=== PATIENT | female | born 1995 | race American Indian/Alaskan Native ===

== ENCOUNTER 2020-09-05 03:21 | Observation (INO) | payer MEDICAID ==
--- NOTE | 2020-09-05 04:23 | XRay Report ---
CHEST 2 VIEWS INDICATION / CLINICAL INFORMATION: Difficulty in breathing. COMPARISON: None available. FINDINGS: SUPPORT DEVICES: None. HEART / MEDIASTINUM: No significant abnormality. LUNGS / PLEURA: Clear lungs. No significant pleural effusion. No pneumothorax. ADDITIONAL FINDINGS: No significant additional findings. IMPRESSION: 1. No acute abnormality of the chest. Signer Name: Srikanth Selby MD Signed: 09/05/2020 4:19 AM Workstation Name: [id number]
[2020-09-05] MEDS ORDERED: ALBUTEROL 2.5 MG/3 ML NEBU IH ONE ×4 (04:34→08:36)
[2020-09-05] MEDS ORDERED: predniSONE 20 MG TAB PO ONE (04:34)
[2020-09-05] MEDS ORDERED: IPRATROPIUM 0.02% NEBU 2.5 ML IH ONE ×2 (04:35)
[2020-09-05] MEDS ORDERED: MAGNESIUM SULFATE 2 GM/50 ML BAG IV ONE (08:36)
--- NOTE | 2020-09-05 08:55 | Emergency Department Report ---
ED General Adult HPI - General Chief complaint: Dyspnea/Respdistress Stated complaint: SOB Time Seen by Provider: 09/05/20 08:29 Source: patient Mode of arrival: Ambulatory Limitations: No Limitations - History of Present Illness Initial comments: 25-year-old female with past medical history of asthma presenting for evaluation of shortness of breath. According to the patient she developed a cough gradually over the past week and has had intermittent fever over the past day. She states that last evening she was at work when she began to feel sharp midsternal chest pains that did not radiate and were worse with deep breathing and began to feel short of breath. Prior to my evaluation this morning she stated that her symptoms were severe however they are modestly improved at this time after steroids and breathing treatments though states that she still feels some discomfort. Symptoms better with nebs, worse with exertion. - Related Data Previous Rx's Medication Instructions Recorded Last Taken Type Docusate Sodium [Colace] 100 mg PO BID PRN #60 capsule 11/05/19 Unknown Rx Ferrous Sulfate [Feosol 325 MG tab] 325 mg PO QDAY #60 tablet 11/05/19 Unknown Rx oxyCODONE /ACETAMINOPHEN [Percocet 1 tab PO Q4HR #30 tab 11/05/19 Unknown Rx 5/325] Allergies Allergy/AdvReac Type Severity Reaction Status Date / Time NSAIDS (Non-Steroidal Allergy Unknown Verified 11/04/19 07:05 Anti-Inflamma ED Review of Systems ROS: Stated complaint: SOB Other details as noted in HPI Comment: All other systems reviewed and negative Respiratory: see HPI ED Past Medical Hx - Past Medical History Previous Medical History?: Yes Hx Hypertension: No Hx Diabetes: No Hx Deep Vein Thrombosis: No Hx Renal Disease: No Hx Sickle Cell Disease: No Hx Seizures: No Hx Asthma: Yes (USED INHALER 1 YR AGO) Hx HIV: No - Surgical History Past Surgical History?: Yes - Social History Smoking Status: Never Smoker Substance Use Type: Alcohol - Medications Home Medications: Home Medications Medication Instructions Recorded Confirmed Last Taken Type Docusate Sodium [Colace] 100 mg PO BID PRN #60 capsule 11/05/19 Unknown Rx Ferrous Sulfate [Feosol 325 MG tab] 325 mg PO QDAY #60 tablet 11/05/19 Unknown Rx oxyCODONE /ACETAMINOPHEN [Percocet 1 tab PO Q4HR #30 tab 11/05/19 Unknown Rx 5/325] ED Physical Exam - General Limitations: No Limitations General appearance: alert, in no apparent distress - Head Head exam: Present: atraumatic, normocephalic - Eye Eye exam: Present: normal appearance - ENT ENT exam: Present: mucous membranes moist - Neck Neck exam: Present: normal inspection - Respiratory Respiratory exam: Present: wheezes (few). Absent: respiratory distress - Cardiovascular Cardiovascular Exam: Present: normal rhythm, tachycardia. Absent: systolic murmur, diastolic murmur, rubs, gallop - GI/Abdominal GI/Abdominal exam: Present: soft, normal bowel sounds - Extremities Exam Extremities exam: Present: normal inspection - Back Exam Back exam: Present: normal inspection - Neurological Exam Neurological exam: Present: alert, oriented X3 - Psychiatric Psychiatric exam: Present: normal affect, normal mood - Skin Skin exam: Present: warm, dry, intact, normal color. Absent: rash ED Course Vital Signs 09/05/20 09/05/20 09/05/20 03:52 04:45 09:55 Temperature 99.2 F Pulse Rate 112 H 118 H Pulse Rate [ 92 H Bilateral Throughout] Respiratory 18 24 Rate Respiratory 22 Rate [Bilateral Throughout] Blood Pressure 128/95 O2 Sat by Pulse 94 94 Oximetry 09/05/20 09/05/20 09:58 11:00 Temperature Pulse Rate 113 H Pulse Rate [ 111 H Bilateral Throughout] Respiratory 24 Rate Respiratory 26 H Rate [Bilateral Throughout] Blood Pressure O2 Sat by Pulse 93 Oximetry - Reevaluation(s) Reevaluation #1: 09/05/20 11:41 I ambulated the patient and she maintained O2 saturation of 93% however she did have increased work of breathing and became much more tachycardic to the 130s. CTA resulted as negative, patient satting 92% on room air with mild increased work of breathing. Will admit. ED Medical Decision Making - Lab Data Result diagrams: 09/05/20 09:00 09/05/20 09:00 - Radiology Data Radiology results: report reviewed No acute findings on two-view chest x-ray - Medical Decision Making 25-year-old female with past history of asthma presenting with complaints of shortness of breath and sharp chest pains worse with inspiration that began last evening. She does report a preceding cough for 1 week. States she had a mild fever last night. Prior to my evaluation she was given nebulizer treatment as well as oral steroids and states that she does feel little bit better but not back to normal. On my examination her heart rate is about 105, O2 93 to 94% on room air, it does not drop when I exert the patient and she does have some mild wheezing on exam. Differential diagnoses includes asthma, pneumonia, PE. Given that despite multiple nebulizer treatments the patient remains symptomatic and has an O2 saturation below 95% we will check labs including D-dimer to rule out pulmonary embolism. We will also give additional nebulizer treatment as well as IV magnesium. After multiple nebulizer treatments including continuous, steroids, magnesium the patient continues to have increased work of breathing. She does maintain her sats with ambulation at about 90 to 93% however does become visibly short of breath. I discussed with Dr. Clarke, internal medicine who will admit patient for observation. - Differential Diagnosis Asthma, pneumonia, PE Critical Care Time: Yes Critical care time in (mins) excluding proc time.: 35 (status asthmaticus) Critical care attestation.: If time is entered above; I have spent that time in minutes in the direct care of this critically ill patient, excluding procedure time. ED Disposition Clinical Impression: Pulmonary nodule Asthma exacerbation Qualifiers: Asthma severity: mild Asthma persistence: intermittent Qualified Code(s): J45.21 - Mild intermittent asthma with (acute) exacerbation Disposition: -09 OP ADMIT IP TO THIS HOSP Is pt being admited?: Yes Condition: Stable Referrals: PRIMARY CARE, [Primary Care Provider] - 3-5 Days Time of Disposition: 11:43
[2020-09-05 09:10] LABS: Hematocrit 35.6 % (30.3-42.9); Hemoglobin 12.2 gm/dl (10.1-14.3); Mean Corpuscular HGB Conc 34 % (30-34); Mean Corpuscular Volume 87 fl (79-97); Platelet Count 300 K/mm3 (140-440); Red Cell Distribution Width 16.3 % (13.2-15.2)
[2020-09-05 09:31] LABS: BUN/Creatinine Ratio 4; Blood Urea Nitrogen 3 mg/dL (7-17); Calcium 8.7 mg/dL (8.4-10.2); Hemolysis Index 24
[2020-09-05] MEDS ORDERED: POTASSIUM CHLORIDE ER 20 MEQ TAB PO ONE (09:57)
[2020-09-05 10:07] LABS: Total Cells Counted 100
[2020-09-05 10:08] LABS: Platelet Estimate Consistent w Auto; RBC Morphology Normal
--- NOTE | 2020-09-05 11:19 | Cat Scan Report ---
CTA CHEST WITH IV CONTRAST INDICATION: Acute onset chest pain with dyspnea. Hypoxia TECHNIQUE: Axial CT images were obtained through the chest after injection of 100 mL IV contrast. 3 plane MIP re constructions were produced. All CT scans at this location are performed using CT dose reduction for ALARA by means of automated exposure control. COMPARISON: None available. FINDINGS: PULMONARY ARTERIES: No pulmonary emboli. AORTA AND ARTERIES: No acute abnormality. MEDIASTINUM: No mass, lymphadenopathy or other significant abnormality. The heart is normal in size w ithout a pericardial effusion. The trachea and main bronchi are patent and normal in caliber. LUNGS: No acute airspace disease. There is a focal 3 mm nodule adjacent to the left major fissure. AD DITIONAL FINDINGS: There is soft tissue prominence within the anterior mediastinum that may represent residual thymus but is ultimately nonspecific.. Mild gastroesophageal reflux UPPER ABDOMEN: No acute findings. BONES: No significant osseous abnormality. IMPRESSION: 1. No CT evidence for pulmonary embolism. 2. No acute findings. 3. Focal 3 mm nodule within the left lower lobe adjacent to the left major fissure. See below INCIDENTAL PULMONARY NODULE RECOMMENDATIONS Solid Nodule size <6 mm -- Single or Multiple - Low Risk Patient: No routine follow-up - High Risk Patient: Optional CT at 12 months Note These recommendations do not apply to lung cancer screening, patients with immunosuppression, o r patients with known primary cancer. Note Newly detected indeterminate nodule in persons 35 years of age or older. Persons under the age of 35 should not receive follow-up unless there is a known primary cancer. Low Risk Patient -- minimal or absent history of smoking and of other known risk factors. High Risk Patient -- history of smoking or of other known risk factors. Nodule dimensions are average of long and short axes, rounded to the nearest millimeter. Based on 2017 Fleischner Society Guidelines found in Radiology 2017 284:228-243. https://doi.org/10.1 148/[email or web address] Signer Name: Jose Swan MD Signed: 09/05/2020 11:15 AM Workstation Name: [email or web address]
[2020-09-05] MEDS ORDERED: ONDANSETRON 4 MG/2 ML INJ IM ONE (11:21)
[2020-09-05] MEDS ORDERED: LACTATED RINGERS 1,000 ML IV ONE (11:24)
--- NOTE | 2020-09-05 11:39 | History and Physical Report ---
History of Present Illness Chief complaint: I cant breathe History of present illness: 25 YO Female with Obesity Hypoventilation Syndrome, Mild Intermittent Asthma presents to ED for evaluation. Patient reports "I cannot breathe". Patient states that she has experienced shortness of breath over the past 1 week with worsening symptoms over the past 1 day. Patient was transported to [facility] via private vehicle for further care and evaluation of the aforementioned symptoms. The patient was seen and evaluated in the emergency department. All lab and imaging studies reviewed. Patient is unable to speak in complete sentences due to shortness of breath and is using accessory muscles to breathe. Patient is unable to ambulate more than 10 feet without stopping due to shortness of breath. Patient was found to have a pulse oximetry of 88% on exertion. Patient exhibits audible wheezes. Patient found to have symptoms consistent with status asthmaticus. Patient placed in observation status and admitted to medical floor. Patient treated with IV steroid therapy as well as magnesium and nebulized bronchodilator therapy with mild improvement in symptoms. Patient uses head gestures to deny fever, chills, chest pain, palpitation, skin rash, recent ill contacts, or known exposure to COVID-19. No prior admission for review. All medication listed at time of admission has been reconciled. Past History Past Medical History: other (See HPI) Past Surgical History: Social history: single. denies: smoking, alcohol abuse, prescription drug abuse Family history: hypertension Medications and Allergies Allergies Allergy/AdvReac Type Severity Reaction Status Date / Time NSAIDS (Non-Steroidal Allergy Unknown Verified 11/04/19 07:05 Anti-Inflamma Home Medications Medication Instructions Recorded Confirmed Last Taken Type Docusate Sodium [Colace] 100 mg PO BID PRN #60 capsule 11/05/19 09/05/20 Unknown Rx Ferrous Sulfate [Feosol 325 MG tab] 325 mg PO QDAY #60 tablet 11/05/19 09/05/20 Unknown Rx oxyCODONE /ACETAMINOPHEN [Percocet 1 tab PO Q4HR #30 tab 11/05/19 09/05/20 Unknown Rx 5/325] Albuterol Sulfate [Albuterol 0.63% 0.63 mg IH Q4H PRN 09/05/20 09/05/20 Unknown History NEBS] Active Meds: Active Medications Lactated Ringer's (Lactated Ringers) 1,000 mls @ 999 mls/hr IV BOLUS ONE Stop: 09/05/20 12:24 Review of Systems Constitutional: no weight loss, no weight gain, no fever, no chills Ears, nose, mouth and throat: no ear pain, no tinnitis, no decreased hearing, no nasal congestion Breasts: no change in shape, no swelling, no mass Cardiovascular: no orthopnea, no palpitations, no edema Respiratory: cough, shortness of breath, wheezing, no excessive sputum, no snoring Gastrointestinal: no abdominal pain, no nausea, no vomiting, no diarrhea Genitourinary Female: no pelvic pain, no flank pain, no dysuria, no urinary frequency, no urgency Rectal: no pain, no incontinence, no bleeding Musculoskeletal: no neck stiffness, no neck pain, no shooting arm pain, no arm numbness/tingling, no low back pain, no redness of joints Integumentary: no rash, no pruritis, no redness, no sores, no jaundice, no boils Neurological: no head injury, no transient paralysis, no weakness, no numbness, no tingling Psychiatric: no anxiety, no memory loss, no insomnia, no change in libido Endocrine: no polyphagia, no polydipsia, no polyuria, no nocturia Hematologic/Lymphatic: no easy bruising, no easy bleeding, no lymphadenopathy Allergic/Immunologic: no urticaria, no persistent infections, no anaphylaxis, no angioedema Exam - Constitutional Vitals: Temp Pulse Resp BP Pulse Ox 99.2 F 113 H 24 128/95 93 09/05/20 03:52 09/05/20 11:00 09/05/20 11:00 09/05/20 03:52 09/05/20 11:00 General appearance: Present: mild distress, obese - EENT Eyes: Present: PERRL ENT: hearing intact, clear oral mucosa - Neck Neck: Present: supple, normal ROM - Respiratory Respiratory effort: normal, labored, accessory muscle use, stridor Respiratory: bilateral: diminished, wheezing - Cardiovascular Heart Sounds: Present: S1 & S2. Absent: rub, click - Extremities Extremities: pulses symmetrical, No edema Peripheral Pulses: within normal limits - Abdominal General gastrointestinal: Present: soft, non-tender, non-distended, normal bowel sounds Female genitourinary: Present: normal - Integumentary Integumentary: Present: clear, warm, dry - Musculoskeletal Musculoskeletal: gait normal, strength equal bilaterally - Psychiatric Psychiatric: appropriate mood/affect, intact judgment & insight - Neurologic Neurologic: CNII-XII intact, moves all extremities Results - Labs CBC & Chem 7: 09/05/20 09:00 09/05/20 09:00 Labs: Abnormal lab results 09/05/20 09/05/20 09/05/20 Range/Units 09:00 09:00 09:00 RDW 16.3 H (13.2-15.2) % Seg Neuts % (Manual) 94.0 H (40.0-70.0) % Lymphocytes % (Manual) 4.0 L (13.4-35.0) % Seg Neutrophils # Man 8.7 H (1.8-7.7) K/mm3 Lymphocytes # (Manual) 0.4 L (1.2-5.4) K/mm3 D-Dimer 353.41 H (0-234) ng/mlDDU Potassium 3.0 L (3.6-5.0) mmol/L BUN 3 L (7-17) mg/dL Glucose 135 H (65-100) mg/dL Assessment and Plan - Patient Problems (1) Asthma exacerbation Current Visit: Yes Status: Acute Qualifiers: Asthma severity: mild Asthma persistence: intermittent Qualified Code(s): J45.21 - Mild intermittent asthma with (acute) exacerbation Plan to address problem: IV steroid therapy, IV magnesium therapy, supplemental oxygen, pulse oximetry, pulmonary toilet, supportive care. Patient counseled regarding avoidance of asthma triggers. (2) Obesity hypoventilation syndrome Current Visit: Yes Status: Acute Plan to address problem: Balanced diet, increase physical activity discharge, chest x-ray, CT scan chest, supplemental oxygen, pulse oximetry, supportive care. (3) GERD (gastroesophageal reflux disease) Current Visit: Yes Status: Acute Qualifiers: Esophagitis presence: without esophagitis Qualified Code(s): K21.9 - Gas tro-esophageal reflux disease without esophagitis Plan to address problem: PPI therapy, supportive care. (4) Obesity Current Visit: Yes Status: Acute Qualifiers: Body mass index: BMI 40.0-44.9 Plan to address problem: Balanced diet, increase physical activity at discharge. Patient counseled regarding balanced diet, calorie counting, and increase physical activity discharge. Patient structured to have outpatient pulmonary follow-up for sleep study. 30 minutes additional time spent counseling patient regarding meal plan, as well as initiation of exercise regimen. Behavior change counseling. (5) Pulmonary nodule Current Visit: Yes Status: Acute Plan to address problem: Patient counseled regarding pulmonary nodule. Patient struck to have repeat CT scan of the chest within 12 months for reevaluation of 3 mm left lung nodule. (6) DVT prophylaxis Current Visit: Yes Status: Acute Plan to address problem: SCD to bilateral lower extremities while in bed, patient is ambulatory
[2020-09-05] MEDS ORDERED: ACETAMINOPHEN 325 MG TAB PO PRN ×2 (11:40→11:42)
[2020-09-05] MEDS ORDERED: ONDANSETRON 4 MG/2 ML INJ IV PRN ×2 (11:40→11:42)
[2020-09-05] MEDS ORDERED: ALBUTEROL 2.5 MG/3 ML NEBU IH PRN (11:40)
[2020-09-05] MEDS ORDERED: DOCUSATE SODIUM 100 MG CAP PO PRN (11:41)
[2020-09-05] MEDS ORDERED: methylPREDNISolone Sod Succinate 125 MG/2 ML INJ IV ONE (12:00)
[2020-09-05] MEDS: FAMOTIDINE 20 MG TAB PO SCH ×2 (12:40→21:27)
[2020-09-05] MEDS ORDERED: HYDROmorphone 1 MG/1 ML INJ IV ONE (15:22)
[2020-09-05] MEDS: methylPREDNISolone Sod Succinate 40 MG/1 ML INJ IV SCH (19:46)
[2020-09-06] MEDS ORDERED: traZODone 50 MG TAB PO PRN (00:08)
[2020-09-06] MEDS ORDERED: traZODone 50 MG TAB PO SCH (01:00)
[2020-09-06] MEDS: methylPREDNISolone Sod Succinate 40 MG/1 ML INJ IV SCH ×2 (05:12→13:15)
[2020-09-06 08:17] LABS: BUN/Creatinine Ratio 6; Blood Urea Nitrogen 5 mg/dL (7-17); Calcium 8.6 mg/dL (8.4-10.2); Hemolysis Index 0
[2020-09-06] MEDS ORDERED: FERROUS SULFATE 325 MG TAB PO SCH (10:00)
--- NOTE | 2020-09-06 10:04 | Discharge Summary ---
Providers - Providers Date of Admission: 09/05/20 11:42 Attending physician: PATY JOHNSON MD Primary care physician: [facility] Hospitalization Reason for admission: Asthma exacerbation Condition: Stable Hospital course: 25 YO Female with Obesity Hypoventilation Syndrome, Mild Intermittent Asthma presents to ED for evaluation. Patient reports "I cannot breathe". Patient states that she has experienced shortness of breath over the past 1 week with worsening symptoms over the past 1 day. Patient was transported to [facility] via private vehicle for further care and evaluation of the aforementioned symptoms. The patient was seen and evaluated in the emergency department. All lab and imaging studies reviewed. Patient is unable to speak in complete sentences due to shortness of breath and is using accessory muscles to breathe. Patient is unable to ambulate more than 10 feet without stopping due to shortness of breath. Patient was found to have a pulse oximetry of 88% on exertion. Patient exhibits audible wheezes. Patient found to have symptoms consistent with status asthmaticus. Patient placed in observation status and admitted to medical floor. Patient treated with IV steroid therapy as well as magnesium and nebulized bronchodilator therapy with mild improvement in symptoms. Patient uses head gestures to deny fever, chills, chest pain, palpitation, skin rash, recent ill contacts, or known exposure to COVID-19. No prior admission for review. All medication listed at time of admission has been reconciled. Patient this morning was noted off oxygen saturation 98% and with ambulation 96% on room air. Mild tachycardia likely secondary to deconditioning. She informs me that she has not been using her inhaler for few months now. She only uses nebulizer. I did go over management with her and the importance of having an inhaler with her at all times. She has had some allergic reaction to the pollen she recently moved while in the last 2 years to [place]. Otherwise she is clinically stable good air movement to the lungs on auscultation. We had extensive discussion about a pulmonary nodule found on the need to follow-up with calendar control clerk blood bank. Also weight loss counseling and preventive care planning for 15 minutes was done. No pulmonary embolism was noted. (1) Asthma exacerbation (2) Obesity hypoventilation syndrome (3) GERD (gastroesophageal reflux disease) (4) Obesity (5) Pulmonary nodule 6) elevated D-dimer Disposition: TO HOME OR SELFCARE Final Discharge Diagnosis (Prints w/discharge instructions): Asthma exacerbation Time spent for discharge: 35 minutes Core Measure Documentation - Palliative Care Palliative Care/ Comfort Measures: Not Applicable - Core Measures Any of the following diagnoses?: none Exam - Physical Exam Narrative exam: VITAL SIGNS: Reviewed. GENERAL: The patient appears normally developed, Vital signs as documented. HEAD: No signs of head trauma. EYES: Pupils are equal. Extraocular motions intact. EARS: Hearing grossly intact. MOUTH: Oropharynx is normal. NECK: No adenopathy, no JVD. CHEST: Chest with good air entry bilaterally with bibasilar wheeze at the bases breath sounds bilaterally. No rales, or rhonchi. CARDIAC: Regular rate and rhythm. S1 and S2, without murmurs, gallops, or ru bs. VASCULAR: No Edema. Peripheral pulses normal and equal in all extremities. ABDOMEN: Soft, non tender and non distended. No rebound or guarding, and no masses palpated. Bowel Sounds normal. MUSCULOSKELETAL: Good range of motion of all major joints. Extremities without clubbing, cyanosis or edema. NEUROLOGIC EXAM: Alert and oriented x 3 No focal sensory or strength deficits. Speech normal. Follows commands. Speaking in full sentences PSYCHIATRIC: Mood normal. SKIN: detail exam as documented in skin assessment - Constitutional Vitals: Temp Pulse Resp BP Pulse Ox 98.5 F 87 18 132/58 100 09/05/20 22:52 09/05/20 22:52 09/05/20 22:52 09/05/20 22:52 09/06/20 09:14 Plan Activity: advance as tolerated, fall precautions Diet: low fat Special Instructions: smoking cessation Follow up with: PRIMARY MD SERGIO [Primary Care Provider] - 3-5 Days FELIPE TOMAS MD [Staff Physician] - 7 Days Prescriptions: Famotidine [Pepcid] 20 mg PO BID #60 tablet Prednisone [predniSONE 10 mg (6-Day Pack, 21 Tabs)] 10 mg PO .TAPER #1 tab.ds.pk Albuterol Mdi (or & Nicu Only) [ProAir HFA Inhaler] 2 puff IH QID PRN #8.5 gram PRN Reason: Shortness Of Breath ALBUTEROL NEB's [Proventil 0.083% NEBS] 2.5 mg IH Q4H PRN #90 nebu PRN Reason: Shortness Of Breath
[2020-09-06] MEDS: FAMOTIDINE 20 MG TAB PO SCH (10:15)
[2020-09-06 15:05] VITALS: BP 142/84
== END 2020-09-06 15:01 | disposition home or self-care (01) ==
LOC: ED 03:21 → 3A 11:42
PROVIDERS: ADMIT Internal Medicine; ATTEND Internal Medicine
DX: J45.901 Unspecified asthma with (acute) exacerbation (principal); J45.21 Mild intermittent asthma with (acute) exacerbation; E66.2 Morbid (severe) obesity with alveolar hypoventilation; K21.9 Gastro-esophageal reflux disease without esophagitis; E66.9 Obesity, unspecified; R91.1 Solitary pulmonary nodule; R77.8 Other specified abnormalities of plasma proteins; Z98.891 History of uterine scar from previous surgery; Z68.41 Body mass index [BMI] 40.0-44.9, adult; Z79.899 Other long term (current) drug therapy; Z98.890 Other specified postprocedural states
CPT/HCPCS: 36415; 71046; 71275; 80048; 82962; 84703; 85025; 85379; 93005; 94640; 94644; 96365; 96375; 96376; 99291; G0378; J1170; J2920; J2930; J3475; J7120; J7512; Q9967; 85007

== ENCOUNTER 2020-12-10 12:01 | Emergency (ER) | payer OTHER, MEDICAID ==
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
[2020-12-10] MEDS ORDERED: NEOMY 3.5 MG/BACIT 400 UNITS/POLY B 5000 UNITS/GM OINT PACKET TP ONE (16:00)
[2020-12-10 16:10] VITALS: BP 113/96
== END 2020-12-10 16:10 | disposition home or self-care (01) ==
LOC: ED 12:01
DX: S16.1XXA Strain of muscle, fascia and tendon at neck level, initial encounter (principal); S80.02XA Contusion of left knee, initial encounter; J45.909 Unspecified asthma, uncomplicated; Z88.8 Allergy status to other drugs, medicaments and biological substances; Z79.899 Other long term (current) drug therapy; Z98.890 Other specified postprocedural states; V49.59XA Passenger injured in collision with other motor vehicles in traffic accident, initial encounter; Y92.410 Unspecified street and highway as the place of occurrence of the external cause; Y93.89 Activity, other specified; Y99.8 Other external cause status
CPT/HCPCS: 72040; 73562; 99283; A6250

== ENCOUNTER 2021-03-17 10:11 | Emergency (ER) | payer OTHER, MEDICAID ==
[2021-03-17] MEDS ORDERED: diphenhydrAMINE 50 MG/ML VIAL IV ONE (10:28)
[2021-03-17] MEDS ORDERED: METOCLOPRAMIDE 10 MG/2 ML INJ IV ONE (10:28)
[2021-03-17] MEDS ORDERED: SODIUM CHLORIDE 0.9% 1000 ML 1,000 ML IV ONE (10:28)
[2021-03-17] MEDS ORDERED: ACETAMINOPHEN 325 MG TAB PO ONE (10:28)
--- NOTE | 2021-03-17 10:35 | Emergency Department Report ---
ED General Adult HPI - General Chief complaint: Chest Pain Stated complaint: CHEST PAIN, HEADACHE Time Seen by Provider: 03/17/21 10:22 Source: patient Mode of arrival: Ambulatory Limitations: No Limitations - History of Present Illness Initial comments: Patient is a 25-year-old female presents emergency room with complaints of URI symptoms that began 2 days ago. She has associated fever, generalized body aches, nasal congestion, rhinorrhea, headache, nausea, vomiting, cough, chest tightness, shortness of breath, generalized body aches. she states she also has decreased smell. She states that last week her daughter was diagnosed with pneumonia. She states that her daughter did not get tested for COVID-19. She has not been vaccinated for COVID-19 or tested for COVID-19 since becoming sick. She denies any vision changes, neck stiffness, pleuritic pain, leg swelling, calf pain. Has medical history of asthma. Allergy to NSAIDs. Last menstrual cycle beginning of February 2021. She has not taken anything today for her symptoms. Severity scale (0 -10): 10 - Related Data Previous Rx's Medication Instructions Recorded Last Taken Type ALBUTEROL NEB's [Proventil 0.083% 2.5 mg IH Q4H PRN #90 nebu 09/06/20 Unknown Rx NEBS] Albuterol Mdi (or & Nicu Only) 2 puff IH QID PRN #8.5 gram 09/06/20 Unknown Rx [ProAir HFA Inhaler] Bacitracin Zinc/Polymyxin B 1 applicatio TP BID #30 gram 12/10/20 Unknown Rx [Double Antibiotic Ointment] HYDROcodone/APAP 5-325 [[place] 1 each PO Q6HR PRN #12 tablet 12/10/20 Unknown Rx 5/325] methOCARBAMOL [Robaxin TAB] 750 mg PO Q8H PRN #30 tablet 12/10/20 Unknown Rx Benzonatate [Tessalon Perles] 100 mg PO Q8HR PRN #12 capsule 03/17/21 Unknown Rx Butalb/Acetaminophen/Caffeine 1 cap PO Q8HR PRN #12 cap 03/17/21 Unknown Rx [Fioricet 50-300-40 mg CAP] Ondansetron [Zofran Odt] 4 mg PO Q8HR PRN #10 tab.rapdis 03/17/21 Unknown Rx guaiFENesin ER [Mucinex ER] 600 mg PO Q12H #12 tablet.er 03/17/21 Unknown Rx Allergies Allergy/AdvReac Type Severity Reaction Status Date / Time NSAIDS (Non-Steroidal Allergy Unknown Verified 11/04/19 07:05 Anti-Inflamma ED Review of Systems ROS: Stated complaint: CHEST PAIN, HEADACHE Other details as noted in HPI Comment: All other systems reviewed and negative ED Past Medical Hx - Past Medical History Hx Hypertension: No Hx Congestive Heart Failure: No Hx Diabetes: No Hx Deep Vein Thrombosis: No Hx Renal Disease: No Hx Sickle Cell Disease: No Hx Seizures: No Hx Asthma: Yes (USED INHALER 1 YR AGO) Hx COPD: No Hx HIV: No - Surgical History Additional Surgical History: x 2 - Social History Smoking Status: Never Smoker Substance Use Type: None - Medications Home Medications: Home Medications Medication Instructions Recorded Confirmed Last Taken Type ALBUTEROL NEB's [Proventil 0.083% 2.5 mg IH Q4H PRN #90 nebu 09/06/20 Unknown Rx NEBS] Albuterol Mdi (or & Nicu Only) 2 puff IH QID PRN #8.5 gram 09/06/20 Unknown Rx [ProAir HFA Inhaler] Bacitracin Zinc/Polymyxin B 1 applicatio TP BID #30 gram 12/10/20 Unknown Rx [Double Antibiotic Ointment] HYDROcodone/APAP 5-325 [[place] 1 each PO Q6HR PRN #12 tablet 12/10/20 Unknown Rx 5/325] methOCARBAMOL [Robaxin TAB] 750 mg PO Q8H PRN #30 tablet 12/10/20 Unknown Rx Benzonatate [Tessalon Perles] 100 mg PO Q8HR PRN #12 capsule 03/17/21 Unknown Rx Butalb/Acetaminophen/Caffeine 1 cap PO Q8HR PRN #12 cap 03/17/21 Unknown Rx [Fioricet 50-300-40 mg CAP] Ondansetron [Zofran Odt] 4 mg PO Q8HR PRN #10 tab.rapdis 03/17/21 Unknown Rx guaiFENesin ER [Mucinex ER] 600 mg PO Q12H #12 tablet.er 03/17/21 Unknown Rx ED Physical Exam - General Limitations: No Limitations General appearance: alert, in no apparent distress - Head Head exam: Present: atraumatic, normocephalic - Eye Eye exam: Present: normal appearance - ENT ENT exam: Present: normal orophraynx, mucous membranes moist, TM's normal bilaterally, normal external ear exam, other (clear rhinorrhea bilaterally ) - Neck Neck exam: Present: full ROM. Absent: tenderness, meningismus - Respiratory Respiratory exam: Present: normal lung sounds bilaterally. Absent: respiratory distress, wheezes, rales, rhonchi, stridor, chest wall tenderness, accessory muscle use, decreased breath sounds, prolonged expiratory - Cardiovascular Cardiovascular Exam: Present: regular rate, normal rhythm, normal heart sounds. Absent: systolic murmur, diastolic murmur, rubs, gallop - Neurological Exam Neurological exam: Present: alert, oriented X3, CN II-XII intact, normal gait. Absent: motor sensory deficit - Psychiatric Psychiatric exam: Present: normal affect, normal mood - Skin Skin exam: Present: warm, dry, intact ED Course Vital Signs 03/17/21 03/17/21 10:18 15:40 Temperature 100.7 F H 96 F L Pulse Rate 97 H 82 Respiratory 16 18 Rate Blood Pressure 128/67 132/84 [Left] O2 Sat by Pulse 98 Oximetry ED Medical Decision Making - Lab Data Result diagrams: 03/17/21 10:57 03/17/21 10:28 Lab Results 03/17/21 03/17/21 03/17/21 Range/Units 10:28 10:57 10:57 WBC 7.3 (4.5-11.0) K/mm3 RBC 4.21 (3.65-5.03) M/mm3 Hgb 11.9 (10.1-14.3) gm/dl Hct 37.3 (30.3-42.9) % MCV 89 (79-97) fl MCH 28 (28-32) pg MCHC 32 (30-34) % RDW 15.1 (13.2-15.2) % Plt Count 294 (140-440) K/mm3 Lymph % (Auto) 5.7 L (13.4-35.0) % [place] % (Auto) 7.6 H (0.0-7.3) % Eos % (Auto) 0.2 (0.0-4.3) % Baso % (Auto) 0.8 (0.0-1.8) % Lymph # (Auto) 0.4 L (1.2-5.4) K/mm3 [place] # (Auto) 0.6 (0.0-0.8) K/mm3 Eos # (Auto) 0.0 (0.0-0.4) K/mm3 Baso # (Auto) 0.1 (0.0-0.1) K/mm3 Seg Neutrophils % 85.7 H (40.0-70.0) % Seg Neutrophils # 6.3 (1.8-7.7) K/mm3 Sodium 131 L (137-145) mmol/L Potassium 3.5 L (3.6-5.0) mmol/L Chloride 100.7 (98-107) mmol/L Carbon Dioxide 16 L (22-30) mmol/L Anion Gap 18 mmol/L BUN 7 (7-17) mg/dL Creatinine 0.8 (0.6-1.2) mg/dL Estimated GFR > 60 ml/min BUN/Creatinine Ratio 9 % Glucose 122 H (65-100) mg/dL Calcium 8.8 (8.4-10.2) mg/dL Total Bilirubin 0.30 (0.1-1.2) mg/dL AST 15 (5-40) units/L ALT 10 (7-56) units/L Alkaline Phosphatase 63 (35-129) units/L Total Protein 7.8 (6.3-8.2) g/dL Albumin 4.3 (3.9-5) g/dL Albumin/Globulin Ratio 1.2 % HCG, Qual Negative (Negative) Vital Signs 03/17/21 03/17/21 10:18 15:40 Temperature 100.7 F H 96 F L Pulse Rate 97 H 82 Respiratory 16 18 Rate Blood Pressure 128/67 132/84 [Left] O2 Sat by Pulse 98 Oximetry - Radiology Data Radiology results: report reviewed Ordering Physician: AZEEM CELESTE Date of Service: 03/17/21 Procedure(s): XR chest routine 2V Accession Number(s): [id number] cc: AZEEM CELESTE Fluoro Time In Minutes: CHEST 2 VIEWS INDICATION / CLINICAL INFORMATION: Cough and fever. COMPARISON: 09/05/20. FINDINGS: SUPPORT DEVICES: None. HEART / MEDIASTINUM: The heart size and pulmonary vasculature are normal. LUNGS / PLEURA: No significant pulmonary or pleural abnormality. No pneumothorax. ADDITIONAL FINDINGS: No significant additional findings. IMPRESSION: No acute abnormality or significant change. There is no evidence of pneumonia. Signer Name: Gonzalez Puente MD Signed: 03/17/2021 12:21 PM Workstation Name: [id number] Transcribed By: RT Dictated By: Gonzalez Puente MD Electronically Authenticated By: Gonzalez Puente MD Signed Date/Time: 03/17/211220 DD/ 19 TD/TT: - Medical Decision Making Patient is a 25-year-old female presents emergency room with complaints of URI symptoms that began 2 days ago. She has associated fever, generalized body aches, nasal congestion, rhinorrhea, headache, nausea, vomiting, cough, chest tightness, shortness of breath, generalized body aches. she states she also has decreased smell. She states that last week her daughter was diagnosed with pneumonia. She states that her daughter did not get tested for COVID-19. She has not been vaccinated for COVID-19 or tested for COVID-19 since becoming sick. She denies any vision changes, neck stiffness, pleuritic pain, leg swelling, calf pain. Has medical history of asthma. Allergy to NSAIDs. Last menstrual cycle beginning of February 2021. She has not taken anything today for her symptoms. Initial vitals with low-grade fever which improved upon repeat. On exam patient has clear rhinorrhea bilaterally, breath sounds are clear bilaterally, no wheezing, no rales, no rhonchi, normal oropharynx, normal TMs and canals, no meningeal signs. Patient given 1 L normal saline, Reglan, Benadryl, Tylenol and symptoms completely improved and she was feeling much better on reexamination. Chest x-ray IMPRESSION: No acute abnormality or significant change. There is no evidence of pneumonia. Labs with dehydration, given 1 L normal saline. Symptoms likely related to URI, no evidence of pneumonia on x-ray. Patient is presenting with the symptoms during COVID-19 pandemic and she has had a sick contact, discussed the possibility of COVID-19 with patient, discussed return precautions, discussed outpatient testing, discussed self quarantine, discussed the importance of primary care follow-up. Advised patient Please take medication as prescribed as needed. Increase your fluid intake over the next several days. Follow-up with your primary care doctor for reexamination. Return to emergency room immediately for any new or worsening symptoms. Recommend outpatient COVID-19 testing and to self quarantine for 10 days from onset of symptoms. Critical care attestation.: If time is entered above; I have spent that time in minutes in the direct care of this critically ill patient, excluding procedure time. ED Disposition Clinical Impression: Upper respiratory infection Qualifiers: URI type: unspecified URI Qualified Code(s): J06.9 - Acute upper respiratory infection, unspecified Disposition: HOME / SELF CARE / HOMELESS Is pt being admited?: No Does the pt Need Aspirin: No Condition: Stable Instructions: Viral Respiratory Infection Additional Instructions: Please take medication as prescribed as needed. Increase your fluid intake over the next several days. Follow-up with your primary care doctor for reexamination. Return to emergency room immediately for any new or worsening symptoms. Recommend outpatient COVID-19 testing and to self quarantine for 10 days from onset of symptoms. Prescriptions: Butalb/Acetaminophen/Caffeine [Fioricet 50-300-40 mg CAP] 1 cap PO Q8HR PRN #12 cap PRN Reason: headache guaiFENesin ER [Mucinex ER] 600 mg PO Q12H #12 tablet.er Benzonatate [Tessalon Perles] 100 mg PO Q8HR PRN #12 capsule PRN Reason: cough Ondansetron [Zofran Odt] 4 mg PO Q8HR PRN #10 tab.rapdis PRN Reason: nausea/vomiting Referrals: DESIRAE HILL MD [Primary Care Provider] - 3-5 Days SAMMI COONEY MD [Staff Physician] - 3-5 Days [facility] [Provider Group] - 3-5 Days Time of Disposition: 12:33 Print Language: THAI
[2021-03-17 11:18] LABS: Basophils # (Auto) 0.1 K/mm3 (0.0-0.1); Basophils % (Auto) 0.8 % (0.0-1.8); Eosinophils % (Auto) 0.2 % (0.0-4.3); Hematocrit 37.3 % (30.3-42.9); Hemoglobin 11.9 gm/dl (10.1-14.3); Lymphocytes # (Auto) 0.4 K/mm3 (1.2-5.4); Lymphocytes % (Auto) 5.7 % (13.4-35.0); Mean Corpuscular HGB Conc 32 % (30-34); Mean Corpuscular Volume 89 fl (79-97); Monocytes # (Auto) 0.6 K/mm3 (0.0-0.8); Monocytes % (Auto) 7.6 % (0.0-7.3); Platelet Count 294 K/mm3 (140-440); Red Blood Count 4.21 M/mm3 (3.65-5.03); Red Cell Distribution Width 15.1 % (13.2-15.2)
[2021-03-17 11:41] LABS: Alanine Aminotransferase 10 units/L (7-56); Albumin 4.3 g/dL (3.9-5); BUN/Creatinine Ratio 9; Blood Urea Nitrogen 7 mg/dL (7-17); Calcium 8.8 mg/dL (8.4-10.2); Hemolysis Index 11
--- NOTE | 2021-03-17 12:25 | XRay Report ---
CHEST 2 VIEWS INDICATION / CLINICAL INFORMATION: Cough and fever. COMPARISON: 09/05/20. FINDINGS: SUPPORT DEVICES: None. HEART / MEDIASTINUM: The heart size and pulmonary vasculature are normal. LUNGS / PLEURA: No significant pulmonary or pleural abnormality. No pneumothorax. ADDITIONAL FINDINGS: No significant additional findings. IMPRESSION: No acute abnormality or significant change. There is no evidence of pneumonia. Signer Name: Gonzalez Puente MD Signed: 03/17/2021 12:21 PM Workstation Name: [id number]
[2021-03-17 15:47] VITALS: BP 132/84
== END 2021-03-17 15:38 | disposition home or self-care (01) ==
LOC: ED 10:11
DX: J06.9 Acute upper respiratory infection, unspecified (principal); Z88.6 Allergy status to analgesic agent
CPT/HCPCS: 36415; 71046; 80053; 84703; 85025; 96361; 96374; 96375; 99284; J1200; J2765; J7030; Q0162